=== PATIENT | female | born 1930 | race Caucasian/White ===

== ENCOUNTER 2016-08-05 14:10 | Emergency (ER) | payer OTHER ==
--- NOTE | 2016-08-05 16:22 | ED CLINICAL REPORT ---
Clinical Report - Physicians/Mid Levels [facility] [address] [place] [address] 08/05/2016 14:14 Patient: TANYA NUÑEZ I Time Seen: 15:06; initial patient contact. Arrived- By private vehicle. HISTORY OF PRESENT ILLNESS Chief Complaint: ABDOMINAL PAIN and CONSTIPATION rectal pain. (Abdominal Pain, r/o Constipation. Pt states that she can't remember her last BM. She states that her, "bottem hurts.").). Is still present. At its maximum, severity described as moderate and 8 / 10. When seen in the E.D., severity described as moderate and 8 / 10. It is described as located in the periumbilical area. The patient has had loss of appetite. No vomiting or diarrhea. Similar symptoms previously: Many times. Recent medical care: Not recently seen/assessed. REVIEW OF SYSTEMS The patient has had constipation. Last bowel movement: patient can't recall. All systems otherwise negative, except as recorded above. PAST HISTORY See nurses notes. Medications: Latanoprost Ophthalmic (Solution 0.005 %) 1 drop, at bedtime. Donepezil HCl Oral (Tablet 5 mg) 1 tablet, at bedtime. Ranitidine HCl Oral 150 mg, 2x a day. QUEtiapine Fumarate Oral 25 mg, daily. PreserVision/Lutein Oral one capsue, 2 x daily. Eyhcbkre-Dcjeqtwuj-JC Ophthalmic. Metoprolol Tartrate Oral 25 mg 1 1/2 tab, 2 x day. Losartan Potassium Oral 25 mg, daily. Levothyroxine Sodium Oral 125 mcg, daily. Aspirin Oral (Tablet 81 mg) 1 tablet, daily. Caltrate 600+D Oral (Tablet 600-800 mg-unit) 1 tablet, 2 x daily. Citalopram Hydrobromide Oral (Tablet 20 mg) 1 tablet, daily. Fluticasone Furoate Nasal 50 mcg 2 sprays each nostril, daily. Allergies: LYNN Inhibitors. Fluoxetine. LIsinopril. Oxycodone. Penicillin. Statins. Vicodin. SOCIAL HISTORY No alcohol use or drug use. FAMILY HISTORY Negative. ADDITIONAL NOTES The nursing notes have been reviewed with agreement regarding the chief complaint, HPI, ROS, PMH and patient medications and allergies. PHYSICAL EXAM Vital Signs: 08/05/2016 14:11 BP: 152/66. HR: 63. RR: 16. O2 saturation: 96%. Temp: 98.5 F. Pain level now: 10/19. Have been reviewed. Appearance: Alert. Appears to be in pain. Patient in mild distress. Eyes: Pupils equal, round and reactive to light. CVS: Normal heart rate and rhythm. Heart sounds normal. Respiratory: No respiratory distress. Breath sounds normal. Abdomen: Soft. Tenderness in the lower abdomen. No guarding, rebound tenderness or Min's, obturator or psoas sign present. Abnormal bowel sounds: diminished. No organomegaly. Femoral pulses equal. Rectal: Moderately tender digital exam. Abnormal digital exam. Brown stool. (pt has a large amount of hard stool in the anus with dialation of the sphincter at this time. no mass or blood seen.). Skin: Skin warm and dry. Normal skin color. No rash. Normal skin turgor. Extremities: No lower extremity edema. LABS, X-RAYS, AND EKG KUB: (Name: Tanya Nuñez I : 1930 MR#: [id number] Ordering Provider: JOSÉ MIGUEL PARNELL Exam(s): XR ABDOMEN 1 VIEW UPRIGHT Date of Exam: 08/05/2016 __ PROCEDURE: XR ABDOMEN 1 VIEW UPRIGHT INDICATION: ABDOMINAL PAIN TECHNIQUE: AP upright view. COMPARISON: None. FINDINGS: Moderate stool in the rectosigmoid colon. There is no free air, mass or suspicious calcification. Severe degenerative changes of the spine with mild dextroscoliosis. IMPRESSION: 1. Moderate stool in the rectosigmoid colon Electronically Final signed by:Bradley Venegas MD 08/05/2016 4:21:06 PM Technologist: KRANTHI). Views: AP. Technique: good. The X-rays were independently viewed by me, interpreted by the radiologist and discussed with the radiologist. PROGRESS AND PROCEDURES Course of Care: 16:18. Evaluation after repeat exam. pt was re evaluated by myself after disimpaction with multiple enemas and manual disimpaction by SARA Gaines. and her sx are markedly improved, no longer having rectal pain, and abdominal pain has gone. Patient gowned. Reassurance given to the patient. Patient identifiers checked. Call light placed in reach. Side rails up x 2. Bed placed in lowest position. Brakes of bed on. Patient ready for evaluation- chart flagged and ED physician notified. --14:46 Eder Padilla R.N. 15:30 08/05/16. ( Digital extraction of BM poking it head out of the anus.). --15:49 Eder Padilla R.N. 15:35. ( Mineral Oil Enema given to pt). --15:49 Eder Padilla R.N. 15:50 08/05/16. ( More stool digitally dug out followed by Fleets Saline Enema). --16:08 Eder Padilla R.N. Patient is stable. The patient's symptoms are now gone. Physical exam findings are improved. Symptoms much better. CLINICAL IMPRESSION Constipation Fecal impaction INSTRUCTIONS No strenuous activity. Rest today. Drink plenty of fluids. No dietary restrictions. Warnings: GENERAL WARNINGS: Return or contact your physician immediately if your condition worsens or changes unexpectedly, if not improving as expected, or if other problems arise. Your Current Medications: CONTINUE TAKING THE FOLLOWING MEDICATIONS: Aspirin Oral : Tablet 81 mg, 1 tablet daily. Caltrate 600+D Oral : Tablet 600-800 mg-unit, 1 tablet 2 x daily. Citalopram Hydrobromide Oral : Tablet 20 mg, 1 tablet daily. Donepezil HCl Oral : Tablet 5 mg, 1 tablet at bedtime. Fluticasone Furoate Nasal : 50 mcg 2 sprays each nostril daily. Latanoprost Ophthalmic : Solution 0.005 %, 1 drop at bedtime. Levothyroxine Sodium Oral : 125 mcg daily. Losartan Potassium Oral : 25 mg daily. Metoprolol Tartrate Oral : 25 mg 1 1/2 tab 2 x day. Xzdymfqk-Kmmjwycdd-OP Ophthalmic. PreserVision/Lutein Oral : one capsue 2 x daily. QUEtiapine Fumarate Oral : 25 mg daily. Ranitidine HCl Oral : 150 mg 2x a day. Prescription Medications: Miralax: take 1 measuring cupful supplied mixed in 8 ounces water at bedtime as needed for constipation. Dispense twenty-six (26) ounce bottle. One refill. Substitution is permissible. Understanding of the discharge instructions verbalized. (Electronically signed by José Miguel Parnell PA-C 08/05/2016 23:15)
--- NOTE | 2016-08-05 16:22 | ED CLINICAL REPORT ---
Clinical Report - Physicians/Mid Levels [facility] [address] [place] [address] 08/05/2016 14:14 Patient: TANYA NUÑEZ I Time Seen: 15:06; initial patient contact. Arrived- By private vehicle. HISTORY OF PRESENT ILLNESS Chief Complaint: ABDOMINAL PAIN and CONSTIPATION rectal pain. (Abdominal Pain, r/o Constipation. Pt states that she can't remember her last BM. She states that her, "bottem hurts.").). Is still present. At its maximum, severity described as moderate and 8 / 10. When seen in the E.D., severity described as moderate and 8 / 10. It is described as located in the periumbilical area. The patient has had loss of appetite. No vomiting or diarrhea. Similar symptoms previously: Many times. Recent medical care: Not recently seen/assessed. REVIEW OF SYSTEMS The patient has had constipation. Last bowel movement: patient can't recall. All systems otherwise negative, except as recorded above. PAST HISTORY See nurses notes. Medications: Latanoprost Ophthalmic (Solution 0.005 %) 1 drop, at bedtime. Donepezil HCl Oral (Tablet 5 mg) 1 tablet, at bedtime. Ranitidine HCl Oral 150 mg, 2x a day. QUEtiapine Fumarate Oral 25 mg, daily. PreserVision/Lutein Oral one capsue, 2 x daily. Pwtczwiy-Lwhfhlsui-ZA Ophthalmic. Metoprolol Tartrate Oral 25 mg 1 1/2 tab, 2 x day. Losartan Potassium Oral 25 mg, daily. Levothyroxine Sodium Oral 125 mcg, daily. Aspirin Oral (Tablet 81 mg) 1 tablet, daily. Caltrate 600+D Oral (Tablet 600-800 mg-unit) 1 tablet, 2 x daily. Citalopram Hydrobromide Oral (Tablet 20 mg) 1 tablet, daily. Fluticasone Furoate Nasal 50 mcg 2 sprays each nostril, daily. Allergies: LYNN Inhibitors. Fluoxetine. LIsinopril. Oxycodone. Penicillin. Statins. Vicodin. SOCIAL HISTORY No alcohol use or drug use. FAMILY HISTORY Negative. ADDITIONAL NOTES The nursing notes have been reviewed with agreement regarding the chief complaint, HPI, ROS, PMH and patient medications and allergies. PHYSICAL EXAM Vital Signs: 08/05/2016 14:11 BP: 152/66. HR: 63. RR: 16. O2 saturation: 96%. Temp: 98.5 F. Pain level now: 10/19. Have been reviewed. Appearance: Alert. Appears to be in pain. Patient in mild distress. Eyes: Pupils equal, round and reactive to light. CVS: Normal heart rate and rhythm. Heart sounds normal. Respiratory: No respiratory distress. Breath sounds normal. Abdomen: Soft. Tenderness in the lower abdomen. No guarding, rebound tenderness or Min's, obturator or psoas sign present. Abnormal bowel sounds: diminished. No organomegaly. Femoral pulses equal. Rectal: Moderately tender digital exam. Abnormal digital exam. Brown stool. (pt has a large amount of hard stool in the anus with dialation of the sphincter at this time. no mass or blood seen.). Skin: Skin warm and dry. Normal skin color. No rash. Normal skin turgor. Extremities: No lower extremity edema. LABS, X-RAYS, AND EKG KUB: (Name: Tanya Nuñez I : 1930 MR#: [id number] Ordering Provider: JOSÉ MIGUEL PARNELL Exam(s): XR ABDOMEN 1 VIEW UPRIGHT Date of Exam: 08/05/2016 __ PROCEDURE: XR ABDOMEN 1 VIEW UPRIGHT INDICATION: ABDOMINAL PAIN TECHNIQUE: AP upright view. COMPARISON: None. FINDINGS: Moderate stool in the rectosigmoid colon. There is no free air, mass or suspicious calcification. Severe degenerative changes of the spine with mild dextroscoliosis. IMPRESSION: 1. Moderate stool in the rectosigmoid colon Electronically Final signed by:Bradley Venegas MD 08/05/2016 4:21:06 PM Technologist: KRANTHI). Views: AP. Technique: good. The X-rays were independently viewed by me, interpreted by the radiologist and discussed with the radiologist. PROGRESS AND PROCEDURES Course of Care: 16:18. Evaluation after repeat exam. pt was re evaluated by myself after disimpaction with multiple enemas and manual disimpaction by SARA Gaines. and her sx are markedly improved, no longer having rectal pain, and abdominal pain has gone. Patient gowned. Reassurance given to the patient. Patient identifiers checked. Call light placed in reach. Side rails up x 2. Bed placed in lowest position. Brakes of bed on. Patient ready for evaluation- chart flagged and ED physician notified. --14:46 Eder Padilla R.N. 15:30 08/05/16. ( Digital extraction of BM poking it head out of the anus.). --15:49 Eder Padilla R.N. 15:35. ( Mineral Oil Enema given to pt). --15:49 Eder Padilla R.N. 15:50 08/05/16. ( More stool digitally dug out followed by Fleets Saline Enema). --16:08 Eder Padilla R.N. Patient is stable. The patient's symptoms are now gone. Physical exam findings are improved. Symptoms much better. CLINICAL IMPRESSION Constipation Fecal impaction INSTRUCTIONS No strenuous activity. Rest today. Drink plenty of fluids. No dietary restrictions. Warnings: GENERAL WARNINGS: Return or contact your physician immediately if your condition worsens or changes unexpectedly, if not improving as expected, or if other problems arise. Your Current Medications: CONTINUE TAKING THE FOLLOWING MEDICATIONS: Aspirin Oral : Tablet 81 mg, 1 tablet daily. Caltrate 600+D Oral : Tablet 600-800 mg-unit, 1 tablet 2 x daily. Citalopram Hydrobromide Oral : Tablet 20 mg, 1 tablet daily. Donepezil HCl Oral : Tablet 5 mg, 1 tablet at bedtime. Fluticasone Furoate Nasal : 50 mcg 2 sprays each nostril daily. Latanoprost Ophthalmic : Solution 0.005 %, 1 drop at bedtime. Levothyroxine Sodium Oral : 125 mcg daily. Losartan Potassium Oral : 25 mg daily. Metoprolol Tartrate Oral : 25 mg 1 1/2 tab 2 x day. Benaxzki-Nldljmdhf-ZD Ophthalmic. PreserVision/Lutein Oral : one capsue 2 x daily. QUEtiapine Fumarate Oral : 25 mg daily. Ranitidine HCl Oral : 150 mg 2x a day. Prescription Medications: Miralax: take 1 measuring cupful supplied mixed in 8 ounces water at bedtime as needed for constipation. Dispense twenty-six (26) ounce bottle. One refill. Substitution is permissible. Understanding of the discharge instructions verbalized. (Electronically signed by José Miguel Parnell PA-C 08/05/2016 23:15)
--- NOTE | 2016-08-05 16:22 | ED NURSING NOTES ---
Clinical Report - Nurses [facility] [address] [place] [address] 08/05/2016 14:14 Patient: CHACE FLYNN I TRIAGE Triage time 14:Aug 05 2016. Acuity: LEVEL 3. Chief Complaint: ABDOMINAL PAIN. Alert. NIA COMA SCORE: Nia Coma Scale: 14- eyes open spontaneously (4); best verbal response- disoriented (4); best motor response- obeys commands (6). --14:45 Eder Padilla R.N. 14:11 08/05/16. BP: 152/66. HR: 63. RR: 16. O2 saturation: 96% on room air. Temp: 98.5 F (oral). Pain level now: 8/10. Additional comments: "bottem pain". --14:45 Eder Padilla R.N. Weight: 75.2 kg stated. Height/Length: 63 inches Per Patient. BMI: 29.4. --14:37 Eder Padilla R.N. Medications Aspirin Oral (Tablet 81 mg) 1 tablet, daily. Caltrate 600+D Oral (Tablet 600-800 mg-unit) 1 tablet, 2 x daily. Citalopram Hydrobromide Oral (Tablet 20 mg) 1 tablet, daily. Fluticasone Furoate Nasal 50 mcg 2 sprays each nostril, daily. --14:17 Eder Padilla R.N. Levothyroxine Sodium Oral 125 mcg, daily. --14:22 Eder Padilla R.N. Losartan Potassium Oral 25 mg, daily. --14:22 Eder Padilla R.N. Metoprolol Tartrate Oral 25 mg 1 1/2 tab, 2 x day. --14:22 Eder Padilla R.N. Xjrtwbms-Nepmknury-DF Ophthalmic. --14:23 Eder Padilla R.N. PreserVision/Lutein Oral one capsue, 2 x daily. --14:23 Eder Padilla R.N. QUEtiapine Fumarate Oral 25 mg, daily. --14:24 Eder Padilla R.N. Ranitidine HCl Oral 150 mg, 2x a day. --14:24 Eder Padilla R.N. Donepezil HCl Oral (Tablet 5 mg) 1 tablet, at bedtime. --14:25 Eder Padilla R.N. Latanoprost Ophthalmic (Solution 0.005 %) 1 drop, at bedtime. --14:25 Eder Padilla R.N. Allergies LYNN Inhibitors. --14:32 Eder Padilla R.N. Fluoxetine. --14:32 Eder Padilla R.N. LIsinopril. --14:33 Eder Padilla R.N. Oxycodone. Penicillin. Statins. --14:36 Eder Padilla R.N. Vicodin. --14:37 Eder Padilla R.N. History Historian: patient. Arrived (aid 47). ( Abdominal Pain, r/o Constipation. Pt states that she can't remember her last BM. She states that her, "bottem hurts."). This started today. ( uncertain regarding last BM). Treatment BODYWORK THERAPIST: None. PAST MEDICAL HX: Immunizations: up-to-date. The patient is post-menopausal. SOCIAL HX: Smoker- current status unknown (cigarette). No alcohol use or drug use. No recent travel. No infectious disease exposure. No known contact with a sick individual. ABUSE ASSESSMENT: No report of abuse. FALL RISK ASSESSMENT: Fall risk assessment completed. No fall risk identified. NUTRITIONAL RISK ASSESSMENT: The nutritional risk assessment revealed no deficiencies. FUNCTIONAL ASSESSMENT: Functional assessment performed: mobility impairment present- this mobility impairment is an ongoing problem. LEARNING NEEDS ASSESSMENT: A learning needs assessment was performed. The patient exhibits a readiness to learn. Factors affecting the patient's ability to learn include cognitive limitations. SKIN INTEGRITY ASSESSMENT: Skin integrity risk assessment completed. No skin integrity risk identified. --14:45 Eder Padilla R.N. Interventions ID and allergy band on patient. To treatment room. --14:45 Eder Padilla R.N. PHYSICAL ASSESSMENT To room via stretcher. GENERAL / NEURO / PSYCH: Alert. The patient is disoriented to place. HEENT: Mucous membranes are pink. RESPIRATORY: Respirations not labored. CVS: Cardiac rhythm: (RRR). GI / : Abdomen soft. Abdominal tenderness in the lower abdomen. SKIN: Skin is warm and dry. --14:46 Eder Padilla R.N. NURSING PROGRESS NOTES Patient gowned. Reassurance given to the patient. Patient identifiers checked. Call light placed in reach. Side rails up x 2. Bed placed in lowest position. Brakes of bed on. Patient ready for evaluation- chart flagged and ED physician notified. --14:46 Eder Padilla R.N. 15:30 08/05/16. ( Digital extraction of BM poking it head out of the anus.). --15:49 Eder Padilla R.N. 15:35. ( Mineral Oil Enema given to pt). --15:49 Eder Padilla R.N. 15:50 08/05/16. ( More stool digitally dug out followed by Fleets Saline Enema). --16:08 Eder Padilla R.N. 16:10 08/05/16. ( Up to BSC and passed a very large formed BM). --16:34 Eder Padilla R.N. DISPOSITION / DISCHARGE Departure time: 1645. --18:05 Eder Padilla R.N. 16:40 08/05/16. BP: 152/66. HR: 63 (regular). RR: 16. O2 saturation: 96% on room air. Temp: 99.3 F. Pain level now: 03/21. --18:12 Eder Padilla R.N. 16:45. Condition at departure: improved. Fall risk assessment completed. Risk factors identified include patient age greater than 65 years, history of fall and impairment of mobility. Fall interventions initiated. Patient placed on stretcher. Instructed not to get up without assistance. No learning barriers present. Discharge instructions provided and reviewed with the patient. Reviewed medication(s) (prescription sent with transport crew). Treatments reviewed (Drink more fluids). Reviewed referral to family practice. Patient verbalized understanding. Written instructions provided in Greenlandic. The patient was discharged by the nurse practitioner. She was discharged home and accompanied by transport crew. She left the Emergency Department via ambulance and on a stretcher. Driving (transport crew). --23:00 Eder Padilla R.N. Locked/Released at 08/08/2016 1:37 by Eder Padilla R.N.
--- NOTE | 2016-08-05 16:22 | ED ORDER SUMMARY ---
..... Patient: CHACE FLYNN I OrderSheet [facility] VisitID: [id number] [address] [place] [address] 85y, F Registration Date/Time: 08/05/2016 ORDER SHEET Weight: 75.2 kg (stated) Allergies: LYNN Inhibitors, Fluoxetine, LIsinopril, Oxycodone, Penicillin, Statins, Vicodin GENERAL ORDERS: Abd Series 2V Abd/1V Chest Urgent (14:54 08/05/2016 Rosario R.N. verbal order read back to Radha ZHAO) (14:58 Rosario R.N.) (Cancelled: Other14:58 Rosario R.N.) Abdomen 1V Upright Urgent (14:59 08/05/2016 Rosario R.N. verbal order read back to Radha ZHAO) (Ack 15:01 Sebas) (15:12 Dede) MEDICATION ORDERS: IV FLUIDS: ORDER SHEET NOTES: [Electronically signed by Jennifer Fragoso PA-C (23:15 08/05/2016)] [Electronically signed by Eder Padilla R.N. (01:37 08/08/2016)] [Electronically locked/signed by Eder Padilla R.N. (01:37 08/08/2016)]
--- NOTE | 2016-08-05 16:22 | ED ORDER SUMMARY ---
..... Patient: CHACE FLYNN I OrderSheet [facility] VisitID: [id number] [address] [place] [address] 85y, F Registration Date/Time: 08/05/2016 ORDER SHEET Weight: 75.2 kg (stated) Allergies: LYNN Inhibitors, Fluoxetine, LIsinopril, Oxycodone, Penicillin, Statins, Vicodin GENERAL ORDERS: Abd Series 2V Abd/1V Chest Urgent (14:54 08/05/2016 Rosario R.N. verbal order read back to Radha ZHAO) (14:58 Rosario R.N.) (Cancelled: Other14:58 Rosario R.N.) Abdomen 1V Upright Urgent (14:59 08/05/2016 Rosario R.N. verbal order read back to Radha ZHAO) (Ack 15:01 Sebas) (15:12 Dede) MEDICATION ORDERS: IV FLUIDS: ORDER SHEET NOTES: [Electronically signed by Jennifer Fragoso PA-C (23:15 08/05/2016)] [Electronically signed by Edre Padilla R.N. (01:37 08/08/2016)] [Electronically locked/signed by Eder Padilla R.N. (01:37 08/08/2016)]
--- NOTE | 2016-08-08 01:37 | ED MED RECONCILIATION SUMMARY ---
Patient: CHACE FLYNN I Medication Reconciliation Report [facility] VisitID: [id number] [place] [address] 85y, F Registration Date/Time: 08/05/2016 Weight: 75.2 kg Height/Length: 63 in. BMI: 29.4 ALLERGIES: LYNN Inhibitors, Fluoxetine, LIsinopril, Oxycodone, Penicillin, Statins, Vicodin The patient's Home Medications are listed below: CONTINUE TAKING THE FOLLOWING MEDICATIONS: Aspirin Oral (81 mg) 1 tablet, daily Caltrate 600+D Oral (600-800 mg-unit) 1 tablet, 2 x daily Citalopram Hydrobromide Oral (20 mg) 1 tablet, daily Donepezil HCl Oral (5 mg) 1 tablet, at bedtime Fluticasone Furoate Nasal 50 mcg 2 sprays each nostril, daily Latanoprost Ophthalmic (0.005 %) 1 drop, at bedtime Levothyroxine Sodium Oral 125 mcg, daily Losartan Potassium Oral 25 mg, daily Metoprolol Tartrate Oral 25 mg 1 1/2 tab, 2 x day Wbtlhzov-Jszdiwsnn-GM Ophthalmic PreserVision/Lutein Oral one capsue, 2 x daily QUEtiapine Fumarate Oral 25 mg, daily Ranitidine HCl Oral 150 mg, 2x a day The source(s) of the original Home Medication information: Not obtained. The following Medications were given to the patient in the Emergency Department: None. The following Medications were prescribed to the patient: Miralax: take 1 measuring cupful supplied mixed in 8 ounces water at bedtime as needed for constipation. Dispense twenty-six (26) ounce bottle. One refill. Substitution is permissible. -- Jennifer Fragoso PA-C
--- NOTE | 2016-08-08 01:37 | ED MAR SUMMARY ---
..... Medication Administration Record [facility] [address] [place] [id number] Patient: CHACE FLYNN I Visit ID: [id number] 85y, F Weight: 75.2 kg Height/Length: 63 in BMI: 29.4 ALLERGIES: Vicodin, Oxycodone, Penicillin, Statins, LIsinopril, LYNN Inhibitors, Fluoxetine
--- NOTE | 2016-08-08 01:37 | ED DISCHARGE INSTRUCTIONS ---
Patient: CHACE FLYNN I General Instructions [facility] VisitID: [id number] [place] [address] 85y, F Registration Date/Time: 08/05/2016 Constipation Fecal impaction INSTRUCTIONS No strenuous activity. Rest today. Drink plenty of fluids. No dietary restrictions. Warnings: GENERAL WARNINGS: Return or contact your physician immediately if your condition worsens or changes unexpectedly, if not improving as expected, or if other problems arise. Your Current Medications: CONTINUE TAKING THE FOLLOWING MEDICATIONS: Aspirin Oral : Tablet 81 mg, 1 tablet daily. Caltrate 600+D Oral : Tablet 600-800 mg-unit, 1 tablet 2 x daily. Citalopram Hydrobromide Oral : Tablet 20 mg, 1 tablet daily. Donepezil HCl Oral : Tablet 5 mg, 1 tablet at bedtime. Fluticasone Furoate Nasal : 50 mcg 2 sprays each nostril daily. Latanoprost Ophthalmic : Solution 0.005 %, 1 drop at bedtime. Levothyroxine Sodium Oral : 125 mcg daily. Losartan Potassium Oral : 25 mg daily. Metoprolol Tartrate Oral : 25 mg 1 1/2 tab 2 x day. [id number]-[id number]-[id number] Ophthalmic. PreserVision/Lutein Oral : one capsue 2 x daily. QUEtiapine Fumarate Oral : 25 mg daily. Ranitidine HCl Oral : 150 mg 2x a day. Prescription Medications: Miralax: take 1 measuring cupful supplied mixed in 8 ounces water at bedtime as needed for constipation. Dispense twenty-six (26) ounce bottle. One refill. Substitution is permissible. Understanding of the discharge instructions verbalized. ADDITIONAL INFORMATION Constipation (Adult) Constipation is bowel movements that are less frequent than usual. Stools often become very hard and difficult to pass. This may lead to abdominal pain and bloating. It may also cause painful bowel movements. Constipation may be due to a diet thats low in fiber. Some medications, especially pain medications, can also cause it. Constipation may be treated with enemas, suppositories, laxatives or stool softeners. Your doctor will advise you which will work best for you. Follow the advice below to help avoid this problem in the future. Home Care Medication: Take any medicines as directed. Some laxatives are safe only for occasional use. Others can be taken on a regular basis. Talk to your doctor or pharmacist if you have questions. General Care: Prescription pain medications can cause constipation. If you are prescribed pain medications, ask the doctor whether you should also take a stool softener. A diet high in fiber with plenty of fluids helps to maintain regular, soft bowel movements. The following foods are good sources of dietary fiber: Cereals and breads: Whole grain cereal with bran, oatmeal, rolled oats, whole grain breads Fruits: All fruits (fresh and dried), raisins, prunes, apricots, berries, figs Vegetables: Any fresh vegetables, especially peas, broccoli, brussels sprouts, winter squash, green beans, cauliflower, barton beans, carrots Other: Popcorn, brown rice Drink plenty of water when you increase the amount of fiber you eat. Follow Up with your doctor or return to this facility if symptoms do not improve in the next few days. You may require further tests or a referral to a specialist. Get Prompt Medical Attention if any of the following occur: Fever over 100.4F (38C) Failure to resume normal bowel movements Increasing abdominal or back pain Nausea or vomiting Abdominal swelling Blood in the stool Weakness, dizziness or fainting Unexpected vaginal bleeding Fecal Impaction (Treated) Fecal Impaction is a severe form of constipation. There is a large amount of hard stool in the rectum that cannot be passed. Although your impaction has been relieved, it may be necessary to continue treatment at home as advised by your doctor. Follow the advice below to help avoid this problem in the future. Home Care Medication: Take any medicines as directed. Some laxatives are safe only for occasional use. Others can be taken on a regular basis. Talk to your doctor or pharmacist if you have questions. General Care: Prescription pain medications can cause constipation. If you are prescribed pain medications, ask the doctor whether you should also take a stool softener. A diet high in fiber with plenty of fluids helps to maintain regular, soft bowel movements. The following foods are good sources of dietary fiber: Cereals and breads: Whole-grain cereal with bran, oatmeal, rolled oats, whole-grain breads Fruits: All fruits (fresh and dried), raisins, prunes, apricots, berries, figs Vegetables: Any fresh vegetables, especially peas, broccoli, brussels sprouts, winter squash, green beans, cauliflower, barton beans, carrots Other: Popcorn, brown rice Drink plenty of water when you increase the amount of fiber you eat. Follow Up with your doctor or return to this facility if symptoms do not improve in the next few days. You may require further tests or a referral to a specialist. Get Prompt Medical Attention if any of the following occur: Fever over 100.4F (38C) Failure to resume normal bowel movements Increasing abdominal or back pain Nausea or vomiting Abdominal swelling Blood in the stool Weakness, dizziness or fainting Unexpected vaginal bleeding Fecal Impaction (Treated) Fecal Impaction is a severe form of constipation. There is a large amount of hard stool in the rectum that cannot be passed. Although your impaction has been relieved, it may be necessary to continue treatment at home as advised by your doctor. Follow the advice below to help avoid this problem in the future. Home Care Medication: Take any medicines as directed. Some laxatives are safe only for occasional use. Others can be taken on a regular basis. Talk to your doctor or pharmacist if you have questions. General Care: Prescription pain medications can cause constipation. If you are prescribed pain medications, ask the doctor whether you should also take a stool softener. A diet high in fiber with plenty of fluids helps to maintain regular, soft bowel movements. The following foods are good sources of dietary fiber: Cereals and breads: Whole-grain cereal with bran, oatmeal, rolled oats, whole-grain breads Fruits: All fruits (fresh and dried), raisins, prunes, apricots, berries, figs Vegetables: Any fresh vegetables, especially peas, broccoli, brussels sprouts, winter squash, green beans, cauliflower, barton beans, carrots Other: Popcorn, brown rice Drink plenty of water when you increase the amount of fiber you eat. Follow Up with your doctor or return to this facility if symptoms do not improve in the next few days. You may require further tests or a referral to a specialist. Get Prompt Medical Attention if any of the following occur: Fever over 100.4F (38C) Failure to resume normal bowel movements Increasing abdominal or back pain Nausea or vomiting Abdominal swelling Blood in the stool Weakness, dizziness or fainting Unexpected vaginal bleeding You have been given the following additional information: Constipation (Adult) Fecal Impaction, Treated Fecal Impaction, Treated No strenuous activity. Rest today. (Electronically signed by Jennifer Fragoso PA-C 08/05/2016 23:15)
--- NOTE | 2016-08-08 01:37 | ED MED RECONCILIATION SUMMARY ---
Patient: CHACE FLYNN I Medication Reconciliation Report [facility] VisitID: [id number] [place] [address] 85y, F Registration Date/Time: 08/05/2016 Weight: 75.2 kg Height/Length: 63 in. BMI: 29.4 ALLERGIES: LYNN Inhibitors, Fluoxetine, LIsinopril, Oxycodone, Penicillin, Statins, Vicodin The patient's Home Medications are listed below: CONTINUE TAKING THE FOLLOWING MEDICATIONS: Aspirin Oral (81 mg) 1 tablet, daily Caltrate 600+D Oral (600-800 mg-unit) 1 tablet, 2 x daily Citalopram Hydrobromide Oral (20 mg) 1 tablet, daily Donepezil HCl Oral (5 mg) 1 tablet, at bedtime Fluticasone Furoate Nasal 50 mcg 2 sprays each nostril, daily Latanoprost Ophthalmic (0.005 %) 1 drop, at bedtime Levothyroxine Sodium Oral 125 mcg, daily Losartan Potassium Oral 25 mg, daily Metoprolol Tartrate Oral 25 mg 1 1/2 tab, 2 x day [id number]-[id number] Ophthalmic PreserVision/Lutein Oral one capsue, 2 x daily QUEtiapine Fumarate Oral 25 mg, daily Ranitidine HCl Oral 150 mg, 2x a day The source(s) of the original Home Medication information: Not obtained. The following Medications were given to the patient in the Emergency Department: None. The following Medications were prescribed to the patient: Miralax: take 1 measuring cupful supplied mixed in 8 ounces water at bedtime as needed for constipation. Dispense twenty-six (26) ounce bottle. One refill. Substitution is permissible. -- Jennifer Fragoso PA-C
--- NOTE | 2016-08-08 01:37 | ED MAR SUMMARY ---
..... Medication Administration Record [facility] [address] [place], [place] [id number] Patient: CHACE FLYNN I Visit ID: [id number] 85y, F Weight: 75.2 kg Height/Length: 63 in BMI: 29.4 ALLERGIES: Vicodin, Oxycodone, Penicillin, Statins, LIsinopril, LYNN Inhibitors, Fluoxetine
== END 2016-08-05 16:45 | disposition home or self-care (01) ==
LOC: ED SRH 14:10
DX: K56.41 Fecal impaction (principal); Z79.82 Long term (current) use of aspirin; Z79.52 Long term (current) use of systemic steroids; Z79.899 Other long term (current) drug therapy; Z88.0 Allergy status to penicillin; Z88.5 Allergy status to narcotic agent; Z88.8 Allergy status to other drugs, medicaments and biological substances